=== PATIENT | female | born 1995 | race Caucasian/White ===

== ENCOUNTER → 2016-12-23 | Outpatient (CLI) | payer OTHER ==
[2016-12-23 14:57] LABS: BASOPHILS # (AUTO) 0.02 10*3/UL; BASOPHILS % (AUTO) 0.2 % (0-1); EOSINOPHILS % (AUTO) 0.5 % (0-8); HEMOGLOBIN 12.8 g/dL (12.0-16.0); IMM GRAN % (AUTO) 0.1 % (0-5); IMM GRAN# (AUTO) 0.01 10*3/UL; LYMPHOCYTES % (AUTO) 22.4 % (10-50); MEAN CORPUSCULAR HEMOGLOBIN 30.5 PG (27-31); MEAN CORPUSCULAR HGB CONC 34.6 g/dL (33-37); MEAN PLATELET VOLUME 11.3 FL (7.4-12.2); MONOCYTES # (AUTO) 0.69 10*3/UL (0.3-0.8); MONOCYTES % (AUTO) 8.6 % (5-15); NEUTROPHILS # (AUTO) 5.49 10*3/UL; NEUTROPHILS % (AUTO) 68.2 % (50-80); PLATELET MORPHOLOGY COMMENT NORMAL MORPHOLOGY (NORM); PRENATAL QUESTION YES (Y); RDW COEFFICIENT OF VARIATION 13.2 % (11.5-14.5); WHITE BLOOD COUNT 8.05 10^3/uL (4.8-10.8)
[2016-12-26 14:04] LABS: RUBELLA IGG INDEX 1.7 (()); SYPHILIS IGG WITH REFLEX Negative (Negative)
[2016-12-26 14:05] LABS: HEP B SURFACE AG Negative (Negative)
[2016-12-28 10:04] LABS: GO23910 SEE COMMENTS (())
== END ==
LOC: MOB LAB 13:20
PROVIDERS: ATTEND Obstetrics & Gynecology
DX: Z36 Encounter for antenatal screening of mother (principal); O20.0 Threatened abortion
CPT/HCPCS: 84702; 86900; 86901; 87088

== ENCOUNTER 2017-02-27 09:05 | Emergency (ER) | payer SELFPAY ==
[2017-02-27] MEDS ORDERED: RHO(D) IMMUNE GLOBULIN 1500 UNIT(300 mcg)SYRIN IM ONE (09:35)
[2017-02-27 10:20] LABS: HEMATOCRIT 36.8 % (37.0-47.0); HEMOGLOBIN 12.4 g/dL (12.0-16.0); MEAN CORPUSCULAR HEMOGLOBIN 29.9 PG (27-31); MEAN CORPUSCULAR HGB CONC 33.7 g/dL (33-37); MEAN CORPUSCULAR VOLUME 88.7 FL (81-99); MEAN PLATELET VOLUME 10.6 FL (7.4-12.2); RED BLOOD COUNT 4.15 10^6/uL (4.20-5.40)
[2017-02-27 11:02] VITALS: RESP 16; TEMP 97.6
--- NOTE | 2017-02-27 11:57 | DI ---
LIMITED OBSTETRICAL ULTRASOUND, 02/27/2017 9:32 AM Clinical History: Vaginal bleeding at 14 weeks of . Previous Exam: None at this facility for this . LMP: 11/18/2016. There is a single live IUP currently in unstable presentation. Amnionic fluid content is normal. Feta l activity is observed as follows: cardiac and extremity. The placenta is fundus and anterior corpus and Grade 0. There is no evidence of an abruption. heart rate is 153 beats/minute and regular. No abnormalities are noted. BPD, HC, AC, and FL measurements are 26 mm, 95 mm, 80 mm, and 14 mm , respectively. These measurements correspond to EGA values of 14 weeks 4 days, 14 weeks 3 days, 14 w eeks 3 days, and 14 weeks 1 day, respectively. Composite EGA is 14 weeks 3 days. The US EDC is 2016. EDC by stated LMP is also 08/25/2017. Readin. Single live fetus with unstable presentation and normal amniotic fluid content. The placenta is f undus and anterior corpus and grade 0. There is no evidence of an abruption. 2. The composite EGA is 14 weeks 3 days with an ultrasound EDC of 08/25/2017.
--- NOTE | 2017-02-27 21:02 | PDOC ---
Female Problem HPI - General Chief Complaint: Vag Complaint/Bleed, <20WK IUP Stated Complaint: BLEEDING DURING Date Seen by Provider: 02/27/17 Time Seen by Provider: 09:20 Source: POSITIVE: Patient Exam Limitations: POSITIVE: No limitations Nurse's Notes Reviewed & Considered: Yes - History of Present Illness Initial Comments: The patient is a 21-year-old female. She states she is approximately a little over 14 weeks and has an estimated date of confinement of 25 August. 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 She's had minimal vaginal spotting since. She is 2 para 1 aborta 0. She states her first was complicated by premature labor. She called her transit planning director earlier this morning and states that she was advised to be evaluated in the emergency room. Last intercourse was over a week ago. She states she has an A negative blood type. She denies any abdominal pain. She's not passed any tissue. Body Location Affected: REPORTS: Abdomen, Other (Vaginal bleeding, 14 weeks ) Timing: REPORTS: Abrupt Duration: 4-6 hours (Onset approximately 3-1/2 hours ago) Severity: Moderate Quality: REPORTS: Other (Patient denies any pain anywhere) Context: REPORTS: Known Location of Pain: DENIES: Right, Left, Breast Pain, Abdominal Pain, Pelvic Pain , Pelvic Cramping, Pelvic Pressure, Burning, Sharp, Vulvar Pain, Vaginal Pain, Low Back Pain, Flank Pain, Shoulder Pain Vaginal Bleeding: REPORTS: Abnormal Bleeding, Passing Clots (States she passed one clot around 6:00 a.m.) : 2 Para: 1 Abortions (Spontaneous/Intentional): 0 : REPORTS: , Positive Test in Clinic, Ultrasound Sexual History: REPORTS: Active (Last intercourse over a week ago) Urinary Symptoms: DENIES: Blood in Urine, Frequent Urination, Discomfort w/ Urination, Burning w/ Urination, Urinary Urgency, Painful Urination, Other Discharge: DENIES: Vaginal Discharge, Vag Fluid Leak- , Breast Discharge, Other Similar Symptoms Previously: No Recent Care Received: REPORTS: Recently Seen, Treated by (Routine obstetrical care) Any Prior Injuries Related to Current Complaint?: No - Patient Home Medications Home Medications: Home Medications Albuterol Sulfate [Proventil Hfa] 1 - 2 puff INH Q4-6H #1 puff 11/20/15 Vits W-Ca,Fe,FA(<1Mg) [] 1 each PO BID 02/27/17 - Patient Allergies Allergies/Adverse Reactions: Allergies Allergy/AdvReac Type Severity Reaction Status Date / Time Penicillins Allergy Severe Anaphylaxis Verified 02/27/17 09:26 Past Medical History - heen HEENT History: Other (please comment) Additional HEENT History: hx osteomyelitis (jaw)/ SURGICAL INTERVENTION Cardiovascular History: Denies History Respiratory History: Denies History Additional Respiratory History: USES ALBUTEROL PRN SEASONAL ALLERGIES Gastrointestinal History: Denies History Genitourinary History: Denies History Endocrine History: Other (please comment) Additional Endocrine History: "prediabetes" Musculoskeletal History: Back Pain Prosthesis or Implant: No Additional Musculoskeletal History: BACK INJURY- Horse Riding accident, chronic back pain Neurological History: Denies History, Other (please comment) Additional Neurological History: 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 RH A- (NEGATIVE) : 2 Para: 1 Cancer History: Denies History In Past Year Been Physically Harmed or Verbally Threatened: No History of MDRO: No History of Other Communicable Diseases: No History of Exposure to Communicable Disease: No Tobacco Use: Never Smoker Alcohol Use: None Substance Use Type: None Previous Surgical History: Yes Type / Date of Surgery: JAW SURGERY Anesthesia Reactions: No Significant Family History: No pertinent family hx Past Medical History Reviewed: Reviewed - No Changes ROS - Limitations ROS Limitations: No Limitations Constitution: REPORTS: Denies Symptoms Cardiovascular: REPORTS: Denies Cardiac Symptoms Respiratory: REPORTS: Denies Resp Symptoms Neurological: REPORTS: Denies Neuro Symptoms Gastrointestinal: REPORTS: Denies GI Symptoms Endocrine: REPORTS: Denies Symptoms Musculoskeletal: REPORTS: Denies MS Symptoms Genitourinary: REPORTS: Other (Vaginal bleeding; 14 weeks ) Eyes: REPORTS: Denies Symptoms ENT: REPORTS: Denies Symptoms Skin: REPORTS: Denies Skin Symptoms Lympathic: REPORTS: Denies Lympathic Symptoms Immunologic: POSITIVE: Denies Symptoms Psychiatric: POSITIVE: Denies Psych Symptoms Female Genitourinary Exam - General Appearance General Appearance: POSITIVE: Alert, Cooperative, No Acute Distress, No Evidence of Trauma - Neck Neck: POSITIVE: Normal Inspection, No Apparent Injury - Respiratory Respiratory: POSITIVE: No Respiratory Distress, Breath Sounds Normal, Chest Non- Tender - Cardiovascular Cardiovascular: POSITIVE: Regular Rate and Rhythm, Heart Sounds Normal, Equal Pulses, Strong Pulses Peripheral Pulses: Radial (R): 2+, Radial (L): 2+ - Abdomen Abdomen: POSITIVE: Soft, Normal Bowel Sounds, Non-Tender, No Distention, No Organomegaly - Back Back: POSITIVE: Normal Inspection - Genital / Rectal Pelvic Exam: POSITIVE: Cervix (Normal; cervical os closed), Vagina (Normal), Uterus (Nontender), Adnexa (Nontender), External Exam Normal, Speculum Exam Normal (Normal except for trace of blood in vaginal vault), Bimanual Exam Normal , Blood In Vaginal Vault (Trace of blood in vaginal vault), Enlarged Uterus. NEGATIVE: Vaginal Discharge, Herpes-Like Ulcerations, Vaginal Bleeding, Clots in vaginal Vault, Cervicitis, Tissue Present in Cervix, Tissue Present in Vagina , Cervical Motion Tender, Cervical Dilation, Adnexal Tenderness, Adnexal Mass, Tender Uterus, Perineal Hematoma, Enlrgd Consistent w/Dates - Skin Skin: POSITIVE: Intact, Normal For Race, Warm, Dry, No Rash - Extremities Extremity: Non-Tender: (All Extremities), Normal ROM: (All Extremities), Normal Inspection: (All Extremities) - Neurological / Psychological Neurological: POSITIVE: Oriented X3, utilization review coordinator Normal As Tested, Motor Normal, Sensation Normal, 5, 6 Female Genitourinary Progress - Results Reviewed by me Xrays/CTs/US Reviewed by me: Yes Discussed with Radiologist: Yes Radiology Findings: Obstetrical ultrasound normal according to consumer relations specialist. Lab Results Reviewed: Yes Lab Results:: Laboratory Results 02/27/17 Range/Units 10:14 WBC 7.23 (4.8-10.8) 10^3/uL RBC 4.15 L (4.20-5.40) 10^6/uL Hgb 12.4 (12.0-16.0) g/dL Hct 36.8 L (37.0-47.0) % MCV 88.7 (81-99) FL MCH 29.9 (27-31) PG MCHC 33.7 (33-37) g/dL RDW Std Deviation 43.9 (39-50) fL RDW Coeff of [place] 13.8 (11.5-14.5) % Plt Count 240 (140-350) 10*3/uL MPV 10.6 (7.4-12.2) FL HCG, Quant 84261 mIU/ML Blood Type A NEGATIVE Antibody Screen Negative - Patient's Progress Pain Medication Addressed: POSITIVE: Not Applicable School/Work Release Addressed: POSITIVE: Yes (Rest for 2 days. No intercourse in until cleared for this activity by her transit planning director.) Re-Examine Time: 11:30 Re-Examine Comment: Patient is remained comfortable and asymptomatic throughout her stay in the emergency room. Status: POSITIVE: Improved, Re-Examined Rhogam Given: Yes - Consult Counseled: POSITIVE: Patient, RE: Lab Results, RE: Radiology Results, RE: DX, RE : Need for F/U Patient Care Time - Estimated PCT Patient Care Time (In Minutes): 55 Vital Signs - VS Reviewed Vital Signs Reviewed: Yes Discharge Clinical Impression: Vaginal bleeding before 22 weeks gestation Discharge Disposition: Discharged to Home Condition: Fair Patient Instructions Given at Discharge: Threatened Miscarriage (ED) Additional Instructions: You'll ultrasound shows a normal-appearing somewhat over 14 weeks intrauterine . I'm not sure why you had your episode of vaginal bleeding earlier today. When this occurs in early , and we cannot identify a source, this is by definition what is known as a threatened miscarriage, meaning that the likelihood of you miscarrying is somewhat higher than if you have not had any vaginal bleeding. My sense however is that your going to be fine. He received a Rhogam shot today. Avoid any intercourse until cleared for this activity by her DIRECTOR OF NUCLEAR MEDICINE doctor. Follow-up with your transit planning director in a few days. He may want to take another quantitative hCG test at that time, to ensure that the hCG numbers are tracking appropriately. Return here anytime if condition worsens in any way. Follow Up With: FLAVIA MARIE [Primary Care Provider] - (Instructions as above. Follow-up in DIRECTOR OF NUCLEAR MEDICINE. Return as necessary. He received a RhoGAM injection today.)
== END 2017-02-27 11:55 | disposition home or self-care (01) ==
LOC: ER 09:05
DX: O20.9 Hemorrhage in early pregnancy, unspecified (principal); Z3A.14 14 weeks gestation of pregnancy
CPT/HCPCS: 36415; 76815; 84702; 85027; 86850; 86900; 86901; 96372; 99283 ×2; J2790

== ENCOUNTER 2017-03-31 20:05 | Outpatient (CLI) | payer OTHER ==
[2017-03-31] MEDS ORDERED: NORMAL SALINE 10 ML SYRINGE FLUSH IVP PRN (20:26)
[2017-03-31 20:31] VITALS: RESP 16; TEMP 99
[2017-03-31] MEDS ORDERED: Sodium Chloride 0.9% 1,000 ML PRIMARY IV ONE (20:38)
[2017-03-31] MEDS ORDERED: Sodium Chloride 0.9% 1,000 ML IV ONE (20:38)
[2017-03-31] MEDS ORDERED: Sodium Chloride 0.9% 2,000 ML ONE (20:43)
[2017-03-31 21:33] LABS: BILIRUBIN,URINE NEGATIVE (NEG); CLARITY,URINE CLEAR (CLEAR); COLOR,URINE YELLOW; GLUCOSE, URINE (UA) NEGATIVE (NEG); NITRATE,URINE NEGATIVE (NEG); OCCULT BLOOD,URINE NEGATIVE (NEG); PH,URINE 6.5 (5.0-8.5); PROTEIN,URINE NEGATIVE (NEG); UROBILINOGEN,URINE 0.2 mg/dL (0.2)
[2017-03-31 21:42] LABS: SQUAMOUS EPITHELIAL CELL,UR RARE; URINE SAMPLE TYPE CLEAN CATCH URINE
--- NOTE | 2017-04-01 12:48 | PDOC(PROG) ---
Intake - - Reason for Visit/Chief Complaint: Cramping Admitted From: Home - Estimated Due Date: 08/25/17 Gestational Age in Weeks and Days: 19 Weeks and 1 Days Para: 0 Term Births: 0 Births: 0 Number of Abortions (Spont./Elective): 0 Living Children: 0 - Labs Blood Type and Rh: A- Group B Strep: Unknown Hepatitis B Surface Antigen: Absent HIV: Negative Rubella Status: Immune VDRL/RPR: Absent Maternal - Vital Signs Last Taken Vital Signs: Vital Signs - Last Taken Temperature 99.0 F 03/31/17 20:29 Pulse Rate 78 03/31/17 20:29 Respiratory Rate 16 03/31/17 20:29 Blood Pressure 100/58 03/31/17 20:29 Pulse Ox 96 03/31/17 20:29 - Uterine Activity Uterine Contraction Monitor Mode: External Contraction Frequency(minutes): 3-9 Contraction Duration (seconds): 50-70 Uterine Contraction Pattern: Absent Uterine Tone Measurement Phase: Resting Uterine Contraction Intensity: Mild - Vaginal Discharge Vaginal Bleeding Amount: None Vaginal Discharge Amount: None Monitoring - Uterine Activity Uterine Contraction Monitor Mode: External Contraction Frequency(minutes): 3-9 Contraction Duration (seconds): 50-70 Uterine Contraction Pattern: Absent Uterine Tone Measurement Phase: Resting Uterine Contraction Intensity: Mild Results - Bedside Testing Bedside Urine Ketone: Negative Bedside Urine Leukocytes Esterase: Negative Bedside Urine Nitrite: Negative Bedside Urine Occult Blood: Negative Bedside Urine Protein: Negative Bedside Specific [place]: 1.025 Assessment and Plan - Assessment / Plan Additional Assessment/Plan Details: The patient is a 21-year-old at 19 and one sevenths weeks gestation who presented to labor and delivery last evening after working outside vigorously during the day. The patient was cramping. The patient's urine specific gravity was slightly elevated. The patient had some contractions on an external monitoring system. The patient received IV fluids. A urinalysis was completed which was negative. The patient's cramping resolved. The patient was sent home with precautions. The patient was to have a scheduled survey ultrasound on 04/01/2017 and the patient will also have a transvaginal cervical length at that time. The patient was sent home with precautions. The patient was asked not to work as hard outside doing what she was doing on 03/31/2017. Patient expressed understanding.
== END 2017-03-31 23:10 | disposition home or self-care (01) ==
LOC: OBOP 20:05
PROVIDERS: ATTEND Obstetrics & Gynecology
DX: O26.892 Other specified pregnancy related conditions, second trimester (principal); R25.2 Cramp and spasm; Z3A.19 19 weeks gestation of pregnancy
CPT/HCPCS: 59025; 81001; 81003; 96360; 96361; 99211; J7030

== ENCOUNTER → 2017-04-01 | Outpatient (CLI) | payer OTHER ==
--- NOTE | 2017-04-01 16:39 | DI ---
HISTORY: Possible cervical incompetence. PREVIOUS EXAM: None available for review at this time. TECHNIQUE/FINDINGS: Multiple views are obtained through the pelvis demonstrating a cervix which is d ifficult to evaluate but measures at least 3.6 cm in length and appears to be closed. The infant is in breech presentation. Amniotic fluid level is subjectively normal. There is normal motion identified to include respiratory motion. Detected Doppler heart tones measured 146 beats per minute. SD ratios were obtained and measured between 6.6 70.3. Estimated gestational age was determined by a composite of biparietal diameter, head circumference, a bdominal circumference and femur length yielding an estimated gestational age by ultrasound of 18 wee ks 5 days. Estimated weight is 277 g (46 percentile). The biparietal diameter and head circumference measured at the seventh and fifth percentiles respecti vely. IMPRESSION: 1. Cervix measures at least 3.6 cm in length without evidence of incompetence. 2. Single live intrauterine gestation with size equal to dates. 3. Head circumference and biparietal diameter measured at the fifth and seventh percentiles. 4. Umbilical Dopplers demonstrating elevated SD ratios measuring between 6.6 and 8.3. NOTE: The interpreting Radiologist was not present at the time of ultrasound interrogation.
== END ==
LOC: US 14:40
PROVIDERS: ATTEND Obstetrics & Gynecology
DX: Z36 Encounter for antenatal screening of mother (principal); O34.32 Maternal care for cervical incompetence, second trimester; Z3A.19 19 weeks gestation of pregnancy
CPT/HCPCS: 76805; 76817

== ENCOUNTER → 2017-06-04 | Outpatient (CLI) | payer OTHER ==
[2017-06-04 12:20] LABS: HEMATOCRIT 34.9 % (37.0-47.0); HEMOGLOBIN 11.9 g/dL (12.0-16.0); MEAN CORPUSCULAR HEMOGLOBIN 30.4 PG (27-31); MEAN CORPUSCULAR HGB CONC 34.1 g/dL (33-37); MEAN CORPUSCULAR VOLUME 89.3 FL (81-99); MEAN PLATELET VOLUME 10.9 FL (7.4-12.2); RED BLOOD COUNT 3.91 10^6/uL (4.20-5.40)
== END ==
LOC: LAB 12:02
PROVIDERS: ATTEND Obstetrics & Gynecology
DX: Z36 Encounter for antenatal screening of mother (principal); Z29.13 Encounter for prophylactic Rho(D) immune globulin; Z3A.28 28 weeks gestation of pregnancy
CPT/HCPCS: 36415; 82950; 85027; 86850; 86870; 86900; 86901; J2790

== ENCOUNTER → 2017-06-24 | Outpatient (CLI) | payer OTHER ==
--- NOTE | 2017-06-25 10:10 | DI ---
LIMITED OBSTETRICAL ULTRASOUND, 06/24/2017 3:00 PM: Clinical History: Low fundal height. Small for dates. Previous Exam: 02/27/2017 ADJUSTED DATE FROM EARLY OBUS: 11/16/2016. There is a single live IUP currently in vertex presentation. Amnionic fluid content is normal. activity is observed as follows: cardiac, extremity, and respiratory. The placenta is posterior corpu s and Grade 1. heart rate varies between 113-128 beats/minute and is regular. The RVOT, LVOT an d 4 chamber heart view are normal. The aortic arch and descending aorta are normal. BPD, HC, AC, and FL measurements are 74 mm, 276 mm, 242 mm, and 57 mm, respectively. These measurements correspond to EGA values of 29 weeks 5 days, 30 weeks 2 days, 28 weeks 4 days and 30 weeks 0 days, respectively. Co mposite EGA is 29 weeks 5 days. The US EDC is 09/04/2017. EDC by adjusted LMP is 08/23/2017. Cord Dopp ler ultrasound is performed. There is diastolic flow. Systolic/diastolic ratios are 4.0, 4.4, and 3.9 , respectively. These are borderline elevated. LMP percentile is 2%. Estimated weight is 1352 g , plus or minus 197 g. Readin. Single live fetus with vertex presentation and normal amniotic fluid content. Placenta is posteri or corpus and grade 1. 2. Cord Doppler ultrasound shows diastolic flow. The systolic/diastolic ratios are at the upper limi ts of normal to borderline elevated for this stage of . 3. The composite EGA is 29 weeks 5 days with an ultrasound EDC of 09/04/2017. Based on the adjusted L MP date of 11/16/2016, the EDC would be 08/23/2017. LMP percentile is 2%. Estimated weight is 1352 g, plus or minus 197 g.
== END ==
LOC: US 14:58
PROVIDERS: ATTEND Obstetrics & Gynecology
DX: O26.843 Uterine size-date discrepancy, third trimester (principal); Z3A.31 31 weeks gestation of pregnancy
CPT/HCPCS: 76805

== ENCOUNTER 2017-08-19 23:55 | Inpatient (IN) ==
[2017-08-20] MEDS ORDERED: Famotidine Inj 20 MG in Normal Saline Flush 10 ML IVP PRN ×4 (00:46)
[2017-08-20] MEDS ORDERED: CefOXitin Inj 2 GM in Sodium Chloride 0.9% 100 ML IV PRN (00:46)
[2017-08-20] MEDS ORDERED: ONDANSETRON 4 MG/2 ML VIAL IVP PRN ×2 (00:46→16:34)
[2017-08-20] MEDS ORDERED: TERBUTALINE SULFATE 1 MG/1 ML SDV SUBCUT PRN (00:46)
[2017-08-20] MEDS ORDERED: NALOXONE 0.4 MG/1 ML VIAL IVP PRN ×2 (00:46→15:18)
[2017-08-20] MEDS ORDERED: Naloxone Inj 0.01 MG in Normal Saline Flush 1 ML IVP PRN ×2 (00:46→15:18)
[2017-08-20] MEDS ORDERED: MISOPROSTOL 200 MCG TABLET RECTAL PRN (00:46)
[2017-08-20] MEDS ORDERED: diphenhydrAMINE 50 MG/1 ML VIAL IVP PRN ×3 (00:46→16:34)
[2017-08-20] MEDS ORDERED: NORMAL SALINE 10 ML SYRINGE FLUSH IVP PRN ×2 (00:46→16:34)
[2017-08-20] MEDS ORDERED: LIDOCAINE HCL 2 % 10 ML JELLY URO-JECT TOPICAL PRN ×2 (00:46→16:34)
[2017-08-20] MEDS ORDERED: ePHEDrine Inj 5 MG in Normal Saline Flush 1 ML IVP PRN ×2 (00:46→15:18)
[2017-08-20] MEDS ORDERED: Lidocaine 1% 10 MG/ML - 20 ML VIAL SUBCUT PRN (00:46)
[2017-08-20] MEDS ORDERED: OXYTOCIN 10 UNIT/1 ML IM PRN (00:46)
[2017-08-20] MEDS ORDERED: Carboprost Inj 250 MCG/ML AMP IM PRN (00:46)
[2017-08-20] MEDS ORDERED: BUTORPHANOL TARTRATE 2 MG/1 ML VIAL IVP PRN ×2 (00:46→15:18)
[2017-08-20] MEDS ORDERED: CALCIUM CARBONATE 500 MG (TUMS) CHEWABLE TABLET PO PRN ×2 (00:46→16:34)
[2017-08-20] MEDS ORDERED: Metoclopramide Inj 10 MG/2 ML VIAL IV PRN (00:46)
[2017-08-20] MEDS ORDERED: LIDOCAINE W/ SODIUM BICARB 0.5 ML SYR SUBD PRN (00:46)
[2017-08-20] MEDS ORDERED: CITRIC ACID/SODIUM CITRATE 30 ML CUP PO PRN (00:46)
[2017-08-20] MEDS ORDERED: Phenylephrine Inj 50 MCG in Normal Saline Flush 0.5 ML IVP PRN ×2 (00:46→15:18)
[2017-08-20] MEDS ORDERED: METHYLERGONOVINE MALEATE 0.2 MG/1 ML VIAL IM PRN (00:46)
[2017-08-20] MEDS ORDERED: Nalbuphine Inj 20 MG/ML Ampule IVP PRN ×3 (00:46→16:34)
[2017-08-20] MEDS ORDERED: Oxytocin 20 Units + LR 20 UNIT/1,000 ML BAG IV SCH ×3 (01:00→16:34)
[2017-08-20 02:55] LABS: Hematocrit [HCT] 35.2 % (37.0-47.0); Hemoglobin [HGB] 11.8 g/dL (12.0-16.0); MEAN CORPUSCULAR HEMOGLOBIN 29.8 PG (27-31); MEAN CORPUSCULAR HGB CONC 33.5 g/dL (33-37); MEAN CORPUSCULAR VOLUME 88.9 FL (81-99); MEAN PLATELET VOLUME 11.7 FL (7.4-12.2); RED BLOOD COUNT 3.96 10^6/uL (4.20-5.40)
[2017-08-20] MEDS: Lactated Ringers-OB Dept 1,000 ML PRIMARY IV SCH ×3 (06:38→14:46)
--- NOTE | 2017-08-20 09:22 | OB.PROGRES ---
Interval History: Shelbie was admitted early the AM for induction of labor secondary to size less than dates at greater than 39 weeks EGA. She is currently on pitocin 2 mIU/min with a category 1 FHRT. Cervix is 3/75%/-2. Amniotomy was performed with return of clear fluid. Anticipate . Objective - Labs CBC and BMP: 08/20/17 02:52 - Vital Signs Last Taken Vital Signs: Vital Signs - Last Taken Temperature 98.2 F 08/20/17 07:00 Pulse Rate 56 L 08/20/17 08:30 Respiratory Rate 18 08/20/17 07:00 Blood Pressure 119/69 08/20/17 08:30 Pulse Ox 97 08/20/17 07:00
[2017-08-20] MEDS: fentaNYL Inj 100 MCG/2 ML VIAL IV PRN ×3 (12:54→14:39)
[2017-08-20] MEDS ORDERED: Fent/Bupiv 2mcg/0.0625% Epid 250 ML ONE (15:06)
[2017-08-20] MEDS ORDERED: fentaNYL 2 MCG/BUPIVACAINE 0.0625%/NS 0.9% 250 ML BAG EPIDURAL ONE (15:18)
--- NOTE | 2017-08-20 15:25 | CRNA.PROCE ---
Central Neuraxis Block Formerly [facility] - - Safety Measures: Site Verified - - Type of Block: Epidural (For labor. Requested by patient.) Reason for Block: Analgesia Moniters Used During Block: SPO2, NIBP Positioning: Sitting Skin Prep Used: ChloroPrep (Twice) Draped: Yes Skin Infiltration - Enter Amount Used in Comment Field: 1% Xylocaine (mL): Yes ( 1ml) Introducer User: 18 Gauge [place] Spinal Needle Used: 18 Hustead 80 mm Local Anesthetic - Enter Amount Used in Comment Field: 1.5 % Xylocaine with Epinephrine 1:200,000 (mL): Yes (4 ml) Number of Centimeters Catheter Threaded: 3.5 Bioclusive Dressing Applied: Yes (With skin prep underneath.) - - Additional Details: E Natals reviewed. Laboratory Results 08/20/17 Range/Units 02:52 WBC 8.19 (4.8-10.8) 10^3/uL RBC 3.96 L (4.20-5.40) 10^6/uL Hgb 11.8 L (12.0-16.0) g/dL Hct 35.2 L (37.0-47.0) % MCV 88.9 (81-99) FL MCH 29.8 (27-31) PG MCHC 33.5 (33-37) g/dL RDW Std Deviation 41.9 (39-50) fL RDW Coeff of [place] 13.1 (11.5-14.5) % Plt Count 181 (140-350) 10*3/uL MPV 11.7 (7.4-12.2) FL Negative for SAB or IV test dose. Placed on infusion at 1513. Slow to get Right side comfortable. Right hip is the uncomfortable spot now. Infusion drug and pump setting verified with Haseeb Cheema RN. Delivered about 1535. Placenta delivered. No tear/laceration repair. Anesthesia Time - Other Weight: 62.142 kg Height: 5 ft 3.5 in Body Mass Index (BMI): 23.8
--- NOTE | 2017-08-20 15:26 | CRNA.PROGR ---
Anesthesia Time - - Start date: 08/20/17 End date: 08/20/17 - Procedure/Recovery Time Anesthesia : Time In: 14:45 Anesthesia : Time Out: 15:45 Anesthesia : Total Time: 60 - Total Anesthesia Time Total Anesthesia Time (minutes): 60 - Other Weight: 62.142 kg Height: 5 ft 3.5 in Body Mass Index (BMI): 23.8 Physical Status: P2 () Anesthesia Type: Epidural
--- NOTE | 2017-08-20 16:07 | OB.DEL.SUM ---
Delivery Note Delivery Summary: The patient progressed well through active labor with pitocin augmentation and epidural analgesia, with a category 1 tracing, to complete dilation. She pushed for a short time to of a viable baby girl, Apgars 9/9, weight 5 lbs 5oz. over an intact perineum from OA position. The placenta delivered promptly , spontaneously, intact, with a 3 vessel cord. Mild PP atony responded well to pitocin and bimanual massage. EBL 300 ml. There were no complications. Mother and baby tolerated delivery well.
[2017-08-20] MEDS ORDERED: DIPH,PERTUSS,TET(ADACEL) VAC/PF 0.5 ML (Tdap) IM ONE (16:34)
[2017-08-20] MEDS ORDERED: BENZOCAINE/MENTHOL SPRAY 56 GM BOTTLE TOPICAL PRN (16:34)
[2017-08-20] MEDS ORDERED: IBUPROFEN 800 MG TABLET PO PRN (16:34)
[2017-08-20] MEDS ORDERED: LANOLIN HPA 40 GM TUBE TOPICAL PRN (16:34)
[2017-08-20] MEDS ORDERED: Ondansetron ODT Tab 4 MG TAB PO PRN (16:34)
[2017-08-20] MEDS ORDERED: RHO(D) IMMUNE GLOBULIN 1500 UNIT(300 mcg)SYRIN IM PRN ×2 (16:34→18:29)
[2017-08-20] MEDS ORDERED: diphenhydrAMINE 25 MG CAPSULE PO PRN (16:34)
[2017-08-20] MEDS ORDERED: ACETAMINOPHEN 325 MG TABLET PO PRN (16:34)
[2017-08-20] MEDS ORDERED: GLYCERIN/WITCH HAZEL 1 BOX TOPICAL PRN (16:34)
[2017-08-20 17:47] VITALS: RESP 18
[2017-08-20] MEDS: DOCUSATE 100 MG CAPSULE PO SCH (21:29)
[2017-08-21 05:18] VITALS: O2SAT 98
[2017-08-21 07:46] VITALS: BP 115/74; TEMP 97.9
[2017-08-21 08:16] LABS: Hematocrit [HCT] 33.9 % (37.0-47.0); Hemoglobin [HGB] 11.4 g/dL (12.0-16.0); MEAN CORPUSCULAR HGB CONC 33.6 g/dL (33-37); MEAN CORPUSCULAR VOLUME 89.2 FL (81-99); MEAN PLATELET VOLUME 11.6 FL (7.4-12.2); RED BLOOD COUNT 3.8 10^6/uL (4.20-5.40)
[2017-08-21] MEDS: DOCUSATE 100 MG CAPSULE PO SCH (08:22)
[2017-08-21] MEDS ORDERED: Prenatal Multivitamin Tab 1 TAB TAB PO SCH (09:00)
--- NOTE | 2017-08-21 09:04 | OB.PROGRES ---
Subjective Post Op Day: 1 Pain Management: PO Harris Catheter: No Flatus: Yes Diet: Regular Feeding Method: Formula Feeding Ambulating: Yes Concerns / Additional Information: Shelbie is doing well this morning. Normal lochia. Voiding without difficulty. Her baby appears to have some type of facial palsy which is affecting her ability to suck and swallow. She may be transferred to [place]. Will discharge Shelbie if this is the case.
--- NOTE | 2017-08-21 10:01 | DCSUMMARY ---
Hospitalization Summary Admit Date: 08/20/17 Discharge Date: 08/21/17 Primary Diagnosis:: Term , Delivered Secondary Diagnosis:: SGA Delivery Type: Vaginal Hospital Course: Normal, uncomplicated labor, delivery and course. Pt. discharged to home on PPD 1 in good condition. / Postop Complications: None [place]ulo Complications: Swallow/Suck dysfunction requiring transfer to [place]. Exam - Vitals Vital Signs: Vital Signs Temperature 97.9 F Temperature Source Oral Pulse Rate [Pulse Oximeter] 69 Pulse Rate 63 Respiratory Rate 18 Blood Pressure [Left Arm] 115/74 Blood Pressure [Right Arm] 130/76 Blood Pressure 117/68 Pulse Ox 98 Oxygen Delivery Method Room Air Height 5 ft 3.5 in Weight 137 lb
== END 2017-08-21 10:55 | disposition home or self-care (01) | DRG 775 ==
LOC: OBIP 08-20 00:01
PROVIDERS: ADMIT Obstetrics & Gynecology; ATTEND Obstetrics & Gynecology